=== PATIENT | male | born 1975 | race Caucasian/White ===

== ENCOUNTER 2021-03-27 11:12 | Inpatient (IN) | payer OTHER ==
[2021-03-27 11:39] VITALS: BMI 27.4
[2021-03-27] MEDS ORDERED: MENTHOL/PHENOL 1 EACH UD MM PRN (13:35)
[2021-03-27] MEDS ORDERED: diazePAM 5 MG TABLET PO PRN (13:35)
[2021-03-27] MEDS ORDERED: BISMUTH SUBSALICYLATE 524 MG/30 ML PO PRN (13:35)
[2021-03-27] MEDS ORDERED: MAGNESIUM HYDROX 2400MG/30ML ORAL SUSPENSION 30 ML CUP PO PRN (13:35)
[2021-03-27] MEDS ORDERED: NICOTINE 10 MG CARTRIDGE (INHALER) IH PRN (13:35)
[2021-03-27] MEDS ORDERED: METHOCARBAMOL 500 MG TABLET PO PRN (13:35)
[2021-03-27] MEDS ORDERED: MAG HYDROX/AL HYDROX/SIMETH 30 ML UNIT-DOSE CUP PO PRN (13:35)
[2021-03-27] MEDS ORDERED: MAGNESIUM CITRATE 300 ML BOTTLE PO PRN (13:35)
[2021-03-27] MEDS ORDERED: IBUPROFEN 400 MG TABLET (FP) PO PRN (13:35)
[2021-03-27] MEDS ORDERED: ACETAMINOPHEN 325 MG TABLET (FP) PO PRN ×2 (13:35)
[2021-03-27] MEDS ORDERED: ONDANSETRON *ODT* 4 MG TABLET SL PRN (13:35)
[2021-03-27] MEDS: hydrOXYzine PAMOATE 25 MG CAPSULE (FP) PO SCH ×3 (17:44→22:43)
[2021-03-27] MEDS: diazePAM 5 MG TABLET PO SCH ×2 (17:45→22:44)
[2021-03-27] MEDS: MELATONIN 5 MG TABLETS PO SCH (22:43)
[2021-03-27] MEDS: THIAMINE HCL 100 MG TABLET (FP) PO SCH (22:43)
[2021-03-28] MEDS: diazePAM 5 MG TABLET PO SCH ×4 (06:03→22:40)
[2021-03-28] MEDS: hydrOXYzine PAMOATE 25 MG CAPSULE (FP) PO SCH ×5 (06:03→22:39)
[2021-03-28 10:54] LABS: HEMATOCRIT 39.9 % (35.4-49); HEMOGLOBIN 13.7 GM/dL (11.7-16.9); MCH 30.7 pg (25.7-33.7); MCHC 34.4 g/dl (32.0-35.9); MEAN CELL VOLUME 89.3 fl (80-96); MEAN PLT VOLUME 8.7 fl (7.5-11.1); PLATELET COUNT 198 10^3/uL (134-434); RBC 4.47 M/mm3 (4.00-5.60); RDW 13.3 % (11.9-15.9); WHITE BLOOD COUNT 4.3 K/mm3 (4.0-10.0)
[2021-03-28] MEDS: PRENATAL VITAMINS W/ FOLIC ACID TABLET (FP) PO SCH (11:00)
[2021-03-28 11:03] LABS: ALBUMIN 3.3 g/dl (3.4-5.0); BLOOD UREA NITROGEN 18.8 mg/dL (7-18); CALCIUM 8.6 mg/dL (8.5-10.1)
[2021-03-28 11:06] LABS: CREATININE 0.9 mg/dL (0.55-1.3)
[2021-03-28 11:07] LABS: BILIRUBIN,TOTAL 0.5 mg/dL (0.2-1)
[2021-03-28 14:42] LABS: HIV INTERPRETATION NEGATIVE (NEGATIVE)
[2021-03-28] MEDS: MELATONIN 5 MG TABLETS PO SCH (22:39)
[2021-03-28] MEDS: THIAMINE HCL 100 MG TABLET (FP) PO SCH (22:39)
[2021-03-29] MEDS: diazePAM 5 MG TABLET PO SCH ×3 (06:31→22:56)
[2021-03-29] MEDS: hydrOXYzine PAMOATE 25 MG CAPSULE (FP) PO SCH ×5 (06:31→22:56)
[2021-03-29] MEDS: PRENATAL VITAMINS W/ FOLIC ACID TABLET (FP) PO SCH (10:25)
[2021-03-29] MEDS: MELATONIN 5 MG TABLETS PO SCH (22:55)
[2021-03-29] MEDS: THIAMINE HCL 100 MG TABLET (FP) PO SCH (22:56)
[2021-03-30] MEDS: diazePAM 5 MG TABLET PO SCH ×2 (07:03→18:55)
[2021-03-30] MEDS: hydrOXYzine PAMOATE 25 MG CAPSULE (FP) PO SCH ×5 (07:03→22:50)
[2021-03-30] MEDS: PRENATAL VITAMINS W/ FOLIC ACID TABLET (FP) PO SCH (10:24)
[2021-03-30] MEDS: THIAMINE HCL 100 MG TABLET (FP) PO SCH (22:50)
[2021-03-30] MEDS: MELATONIN 5 MG TABLETS PO SCH (22:50)
[2021-03-31] MEDS ORDERED: diazePAM 5 MG TABLET PO ONE (06:00)
[2021-03-31] MEDS: hydrOXYzine PAMOATE 25 MG CAPSULE (FP) PO SCH ×2 (06:36→10:32)
[2021-03-31 09:31] VITALS: BP 105/70; PULSE 69; TEMP 97.1
[2021-03-31] MEDS: PRENATAL VITAMINS W/ FOLIC ACID TABLET (FP) PO SCH (10:32)
== END 2021-03-31 11:05 | disposition other institution (70) | DRG 775 ==
LOC: YASAS 11:12 → Y3N 15:24
PROVIDERS: ADMIT Allergy & Immunology; ATTEND Allergy & Immunology
PROC: HZ2ZZZZ Detoxification Services for Substance Abuse Treatment (ICD-10-PCS; principal; 2021-03-27)
DX: F10.230 Alcohol dependence with withdrawal, uncomplicated (principal); F12.20 Cannabis dependence, uncomplicated; F17.210 Nicotine dependence, cigarettes, uncomplicated; Z56.0 Unemployment, unspecified; Z59.0 Homelessness
CPT/HCPCS: 36415; 80053; 85027; 86780; 87389; 93005; 93010; C9803; U0003; U0005

== ENCOUNTER 2021-03-31 11:29 | Inpatient (IN) | payer OTHER ==
[2021-03-31] MEDS ORDERED: MAGNESIUM HYDROX 2400MG/30ML ORAL SUSPENSION 30 ML CUP PO PRN (12:51)
[2021-03-31] MEDS ORDERED: LOPERAMIDE HCL 2 MG CAPSULE PO PRN (12:51)
[2021-03-31] MEDS ORDERED: IBUPROFEN 400 MG TABLET (FP) PO PRN (12:51)
[2021-03-31] MEDS ORDERED: guaiFENesin 200 MG/10 ML 10 ML UNIT-DOSE CUPS PO PRN (12:51)
[2021-03-31] MEDS ORDERED: hydrOXYzine PAMOATE 25 MG CAPSULE (FP) PO PRN (12:51)
[2021-03-31] MEDS ORDERED: ACETAMINOPHEN 325 MG TABLET (FP) PO PRN (12:51)
[2021-03-31] MEDS ORDERED: P-EPHED 60MG/TRIPROLIDI 2.5MG TABLET PO PRN (12:51)
[2021-03-31] MEDS ORDERED: NICOTINE 10 MG CARTRIDGE (INHALER) IH PRN (12:51)
[2021-03-31] MEDS ORDERED: MAG HYDROX/AL HYDROX/SIMETH 30 ML UNIT-DOSE CUP PO PRN (12:51)
[2021-03-31] MEDS ORDERED: MENTHOL/PHENOL 1 EACH UD MM PRN (12:51)
[2021-03-31] MEDS ORDERED: MAGNESIUM CITRATE 300 ML BOTTLE PO PRN (12:51)
[2021-03-31] MEDS: METHOCARBAMOL 500 MG TABLET PO SCH ×3 (13:49→22:23)
[2021-03-31] MEDS: MELATONIN 5 MG TABLETS PO SCH (22:23)
[2021-03-31] MEDS: THIAMINE HCL 100 MG TABLET (FP) PO SCH (22:24)
[2021-04-01] MEDS: NICOTINE 7 MG/24 HOURS TOPICAL PATCH TD SCH (10:05)
[2021-04-01] MEDS: PRENATAL VITAMINS W/ FOLIC ACID TABLET (FP) PO SCH (10:06)
[2021-04-01] MEDS: METHOCARBAMOL 500 MG TABLET PO SCH ×2 (10:06→13:25)
[2021-04-01] MEDS: MELATONIN 5 MG TABLETS PO SCH (21:12)
[2021-04-01] MEDS: THIAMINE HCL 100 MG TABLET (FP) PO SCH (21:12)
[2021-04-02] MEDS ORDERED: PT OWN MED DRAWER 7, Y5N ONE (08:08)
[2021-04-02] MEDS: NICOTINE 7 MG/24 HOURS TOPICAL PATCH TD SCH (09:23)
[2021-04-02] MEDS: PRENATAL VITAMINS W/ FOLIC ACID TABLET (FP) PO SCH (09:24)
[2021-04-02] MEDS: MELATONIN 5 MG TABLETS PO SCH (23:14)
[2021-04-02] MEDS: THIAMINE HCL 100 MG TABLET (FP) PO SCH (23:14)
[2021-04-03 07:06] VITALS: TEMP 97.1
[2021-04-03] MEDS: PRENATAL VITAMINS W/ FOLIC ACID TABLET (FP) PO SCH (09:15)
[2021-04-03] MEDS: NICOTINE 7 MG/24 HOURS TOPICAL PATCH TD SCH (09:15)
[2021-04-03] MEDS: THIAMINE HCL 100 MG TABLET (FP) PO SCH (23:39)
[2021-04-03] MEDS: MELATONIN 5 MG TABLETS PO SCH (23:39)
[2021-04-04 07:10] VITALS: PULSE 62
[2021-04-04] MEDS: PRENATAL VITAMINS W/ FOLIC ACID TABLET (FP) PO SCH (10:22)
[2021-04-04] MEDS: NICOTINE 7 MG/24 HOURS TOPICAL PATCH TD SCH (10:22)
[2021-04-04] MEDS: THIAMINE HCL 100 MG TABLET (FP) PO SCH (21:58)
[2021-04-04] MEDS: MELATONIN 5 MG TABLETS PO SCH (21:58)
[2021-04-05 06:28] VITALS: BP 125/72
[2021-04-05] MEDS: PRENATAL VITAMINS W/ FOLIC ACID TABLET (FP) PO SCH (09:05)
[2021-04-05] MEDS: NICOTINE 7 MG/24 HOURS TOPICAL PATCH TD SCH (09:05)
== END 2021-04-05 12:04 | disposition home or self-care (01) | DRG 772 ==
LOC: YASAS 11:29 → Y3E 11:30
PROVIDERS: ADMIT Allergy & Immunology; ATTEND Allergy & Immunology
PROC: HZ42ZZZ Group Counseling for Substance Abuse Treatment, Cognitive-Behavioral (ICD-10-PCS; principal; 2021-03-31)
DX: F10.20 Alcohol dependence, uncomplicated (principal); F12.20 Cannabis dependence, uncomplicated; F17.210 Nicotine dependence, cigarettes, uncomplicated

== ENCOUNTER 2022-09-18 16:18 | Inpatient (IN) | payer OTHER ==
[2022-09-18 17:06] VITALS: BMI 25.0
[2022-09-18] MEDS ORDERED: IBUPROFEN 400 MG TABLET (FP) PO PRN (19:54)
[2022-09-18] MEDS ORDERED: MAGNESIUM HYDROX 2400MG/30ML ORAL SUSPENSION 30 ML CUP PO PRN (19:54)
[2022-09-18] MEDS ORDERED: DICYCLOMINE HCL 10 MG CAPSULE PO PRN (19:54)
[2022-09-18] MEDS ORDERED: BISMUTH SUBSALICYLATE 524 MG/30 ML PO PRN (19:54)
[2022-09-18] MEDS ORDERED: hydrOXYzine PAMOATE 25 MG CAPSULE (FP) PO PRN (19:54)
[2022-09-18] MEDS ORDERED: BENZONATATE 200 MG CAPSULE PO PRN (19:54)
[2022-09-18] MEDS ORDERED: P-EPHED 60MG/TRIPROLIDI 2.5MG TABLET PO PRN (19:54)
[2022-09-18] MEDS ORDERED: guaiFENesin 600 MG TABLET.ER (FP) PO PRN (19:54)
[2022-09-18] MEDS ORDERED: LOPERAMIDE HCL 2 MG CAPSULE PO PRN (19:54)
[2022-09-18] MEDS ORDERED: POLYETHYLENE GLYCOL (HEALTHYLAX) 3350 17 GM PACKET PO PRN (19:54)
[2022-09-18] MEDS ORDERED: BENZOCAINE/MENTHOL (CHLORASEPTIC ) LOZENGE MM PRN (19:54)
[2022-09-18] MEDS ORDERED: ONDANSETRON *ODT* 4 MG TABLET SL PRN (19:54)
[2022-09-18] MEDS ORDERED: ACETAMINOPHEN 325 MG TABLET (FP) PO PRN (19:54)
[2022-09-18] MEDS: THIAMINE HCL 100 MG TABLET (FP) PO SCH (21:36)
[2022-09-19] MEDS: PRENATAL VITAMINS W/ FOLIC ACID TABLET (FP) PO SCH (10:12)
[2022-09-19] MEDS: chlordiazePOXIDE HCL 25 MG CAPSULE PO SCH ×3 (10:13→22:29)
[2022-09-19 12:32] LABS: HEMATOCRIT 40.5 % (35.4-49); MCH 30.9 pg (25.7-33.7); MCHC 34.6 g/dl (32.0-35.9); MEAN CELL VOLUME 89.3 fl (80-96); MEAN PLT VOLUME 8.8 fl (7.5-11.1); PLATELET COUNT 190 10^3/uL (134-434); RBC 4.54 M/mm3 (4.00-5.60); RDW 12.8 % (11.9-15.9); WHITE BLOOD COUNT 4.9 K/mm3 (4.0-10.0)
[2022-09-19 12:38] LABS: ALBUMIN 3.4 g/dl (3.4-5.0); CALCIUM 8.7 mg/dL (8.5-10.1)
[2022-09-19 12:39] LABS: BLOOD UREA NITROGEN 20.7 mg/dL (7-18)
[2022-09-19 12:41] LABS: CREATININE 0.9 mg/dL (0.55-1.3)
[2022-09-19 12:43] LABS: BILIRUBIN,TOTAL 0.2 mg/dL (0.2-1)
[2022-09-19] MEDS: chlordiazePOXIDE HCL 25 MG CAPSULE PO PRN (14:42)
[2022-09-19] MEDS: THIAMINE HCL 100 MG TABLET (FP) PO SCH (22:29)
[2022-09-19] MEDS: MELATONIN 5 MG TABLETS PO PRN (22:29)
[2022-09-20] MEDS: chlordiazePOXIDE HCL 25 MG CAPSULE PO SCH ×5 (05:50→22:50)
[2022-09-20] MEDS: PRENATAL VITAMINS W/ FOLIC ACID TABLET (FP) PO SCH (10:15)
[2022-09-20] MEDS: chlordiazePOXIDE HCL 25 MG CAPSULE PO PRN ×2 (12:52→20:01)
[2022-09-20] MEDS: MELATONIN 5 MG TABLETS PO PRN (22:48)
[2022-09-20] MEDS: THIAMINE HCL 100 MG TABLET (FP) PO SCH (22:49)
[2022-09-21] MEDS: MAG HYDROX/AL HYDROX/SIMETH 30 ML UNIT-DOSE CUP PO PRN (02:54)
[2022-09-21] MEDS: chlordiazePOXIDE HCL 25 MG CAPSULE PO SCH ×4 (05:54→22:58)
[2022-09-21] MEDS: PRENATAL VITAMINS W/ FOLIC ACID TABLET (FP) PO SCH (10:07)
[2022-09-21] MEDS: THIAMINE HCL 100 MG TABLET (FP) PO SCH (22:58)
[2022-09-22] MEDS ORDERED: chlordiazePOXIDE HCL 10 MG CAPSULE PO PRN
[2022-09-22] MEDS: chlordiazePOXIDE HCL 10 MG CAPSULE PO SCH ×5 (06:15→22:20)
[2022-09-22] MEDS: PRENATAL VITAMINS W/ FOLIC ACID TABLET (FP) PO SCH (10:10)
[2022-09-22] MEDS: MAG HYDROX/AL HYDROX/SIMETH 30 ML UNIT-DOSE CUP PO PRN (17:49)
[2022-09-22] MEDS: THIAMINE HCL 100 MG TABLET (FP) PO SCH (21:30)
[2022-09-22] MEDS: MELATONIN 5 MG TABLETS PO PRN (21:30)
[2022-09-23] MEDS: chlordiazePOXIDE HCL 10 MG CAPSULE PO SCH ×2 (05:52→17:54)
[2022-09-23] MEDS: PRENATAL VITAMINS W/ FOLIC ACID TABLET (FP) PO SCH (10:30)
[2022-09-23] MEDS: IBUPROFEN 600 MG TABLET (FP) PO PRN ×2 (12:33→20:56)
[2022-09-23] MEDS: MELATONIN 5 MG TABLETS PO PRN (21:51)
[2022-09-23] MEDS: THIAMINE HCL 100 MG TABLET (FP) PO SCH (21:51)
[2022-09-24] MEDS ORDERED: chlordiazePOXIDE HCL 10 MG CAPSULE PO ONE (05:00)
[2022-09-24] MEDS: IBUPROFEN 600 MG TABLET (FP) PO PRN (05:54)
[2022-09-24 09:32] VITALS: BP 122/72; PULSE 89; RESP 17; TEMP 97.1
[2022-09-24] MEDS: PRENATAL VITAMINS W/ FOLIC ACID TABLET (FP) PO SCH (10:20)
== END 2022-09-24 11:45 | disposition home or self-care (01) | DRG 775 ==
LOC: YASAS 16:18 → Y3N 21:04
PROVIDERS: ADMIT Allergy & Immunology; ATTEND Surgery
PROC: HZ2ZZZZ Detoxification Services for Substance Abuse Treatment (ICD-10-PCS; principal; 2022-09-18)
DX: F10.230 Alcohol dependence with withdrawal, uncomplicated (principal); F17.210 Nicotine dependence, cigarettes, uncomplicated; R79.89 Other specified abnormal findings of blood chemistry
CPT/HCPCS: 36415; 80053; 85027; 86780; C9803-CS; U0003; U0005

== ENCOUNTER 2023-04-24 13:12 | Inpatient (IN) | payer OTHER ==
[2023-04-24 14:33] VITALS: BMI 28.3
[2023-04-24] MEDS ORDERED: BENZOCAINE/MENTHOL (CHLORASEPTIC ) LOZENGE MM PRN (15:00)
[2023-04-24] MEDS ORDERED: BENZONATATE 200 MG CAPSULE PO PRN (15:00)
[2023-04-24] MEDS ORDERED: MAG HYDROX/AL HYDROX/SIMETH 30 ML UNIT-DOSE CUP PO PRN (15:00)
[2023-04-24] MEDS ORDERED: NICOTINE POLACRILEX 2 MG GUM BUC PRN (15:00)
[2023-04-24] MEDS ORDERED: IBUPROFEN 400 MG TABLET (FP) PO PRN (15:00)
[2023-04-24] MEDS ORDERED: ONDANSETRON *ODT* 4 MG TABLET SL PRN (15:00)
[2023-04-24] MEDS ORDERED: BISMUTH SUBSALICYLATE 262 MG/15 ML BTL PO PRN (15:00)
[2023-04-24] MEDS ORDERED: ACETAMINOPHEN 325 MG TABLET (FP) PO PRN (15:00)
[2023-04-24] MEDS ORDERED: MAGNESIUM HYDROX 2400MG/30ML ORAL SUSPENSION 30 ML CUP PO PRN (15:00)
[2023-04-24] MEDS ORDERED: guaiFENesin 600 MG TABLET.ER (FP) PO PRN (15:00)
[2023-04-24] MEDS ORDERED: POLYETHYLENE GLYCOL (HEALTHYLAX) 3350 17 GM PACKET PO PRN (15:00)
[2023-04-24] MEDS ORDERED: NALOXONE HCL 0.4 MG/ML VIAL IM PRN (15:00)
[2023-04-24] MEDS ORDERED: DICYCLOMINE HCL 10 MG CAPSULE PO PRN (15:00)
[2023-04-24] MEDS ORDERED: NALOXONE HCL (KLOXXADO) 8 MG SPRAY NS PRN (15:00)
[2023-04-24] MEDS ORDERED: LOPERAMIDE HCL 2 MG CAPSULE PO PRN (15:00)
[2023-04-24] MEDS: THIAMINE HCL 100 MG TABLET (FP) PO SCH (23:16)
[2023-04-24] MEDS: MELATONIN 5 MG TABLETS PO SCH (23:16)
[2023-04-25] MEDS: IBUPROFEN 600 MG TABLET (FP) PO PRN (07:18)
[2023-04-25] MEDS: hydrOXYzine PAMOATE 25 MG CAPSULE (FP) PO PRN (07:19)
[2023-04-25] MEDS: METHOCARBAMOL 500 MG TABLET PO PRN ×2 (07:19→22:30)
[2023-04-25] MEDS ORDERED: diazePAM 5 MG TABLET PO PRN (09:44)
[2023-04-25] MEDS ORDERED: diazePAM 5 MG TABLET PO ONE (10:00)
[2023-04-25] MEDS: NICOTINE 21 MG/24 HOURS TOPICAL PATCH TD SCH ×2 (10:52)
[2023-04-25] MEDS: PRENATAL VITAMINS W/ FOLIC ACID TABLET (FP) PO SCH (10:52)
[2023-04-25 12:22] LABS: CHLORIDE 105 mmol/L (98-107); POTASSIUM 4.1 mmol/L (3.5-5.1); SODIUM 139 mmol/L (136-145)
[2023-04-25 12:26] LABS: HEMATOCRIT 42.9 % (35.4-49); HEMOGLOBIN 14.1 GM/dL (11.7-16.9); MCH 29.3 pg (25.7-33.7); MCHC 32.8 g/dl (32.0-35.9); MEAN CELL VOLUME 89.2 fl (80-96); MEAN PLT VOLUME 8.6 fl (7.5-11.1); PLATELET COUNT 207 10^3/uL (134-434); RBC 4.81 M/mm3 (4.00-5.60); WHITE BLOOD COUNT 3.6 K/mm3 (4.0-10.0)
[2023-04-25 12:28] LABS: ALBUMIN 3.6 g/dl (3.4-5.0); GLUCOSE,RANDOM 92 mg/dL (74-106)
[2023-04-25 12:31] LABS: ANION GAP 5 mmol/L (4-13); CALCIUM 8.6 mg/dL (8.5-10.1); CO2 28 mmol/L (21-32); CREATININE 0.8 mg/dL (0.55-1.3); SGPT/ALT 27 U/L (13-61)
[2023-04-25 12:32] LABS: SGOT/AST 26 U/L (15-37)
[2023-04-25 12:35] LABS: BILIRUBIN,TOTAL 1.4 mg/dL (0.2-1)
[2023-04-25 12:36] LABS: TOT PROT 6.3 g/dl (6.4-8.2)
[2023-04-25 12:37] LABS: ALK PHOS 91 U/L (45-117)
[2023-04-25] MEDS: diazePAM 5 MG TABLET PO SCH ×2 (17:40→22:30)
[2023-04-25] MEDS: THIAMINE HCL 100 MG TABLET (FP) PO SCH (22:30)
[2023-04-25] MEDS: MELATONIN 5 MG TABLETS PO SCH (22:30)
[2023-04-26] MEDS: diazePAM 5 MG TABLET PO SCH ×4 (05:45→22:15)
[2023-04-26] MEDS: NICOTINE 21 MG/24 HOURS TOPICAL PATCH TD SCH (10:23)
[2023-04-26] MEDS: PRENATAL VITAMINS W/ FOLIC ACID TABLET (FP) PO SCH (10:23)
[2023-04-26] MEDS: hydrOXYzine PAMOATE 25 MG CAPSULE (FP) PO PRN (22:15)
[2023-04-26] MEDS: THIAMINE HCL 100 MG TABLET (FP) PO SCH (22:15)
[2023-04-26] MEDS: MELATONIN 5 MG TABLETS PO SCH (22:15)
[2023-04-26] MEDS: METHOCARBAMOL 500 MG TABLET PO PRN (22:15)
[2023-04-27] MEDS: diazePAM 5 MG TABLET PO SCH ×3 (05:14→22:34)
[2023-04-27] MEDS: METHOCARBAMOL 500 MG TABLET PO PRN ×2 (05:15→22:35)
[2023-04-27] MEDS: NICOTINE 21 MG/24 HOURS TOPICAL PATCH TD SCH (10:12)
[2023-04-27] MEDS: PRENATAL VITAMINS W/ FOLIC ACID TABLET (FP) PO SCH (10:12)
[2023-04-27] MEDS: hydrOXYzine PAMOATE 25 MG CAPSULE (FP) PO PRN ×2 (10:13→22:34)
[2023-04-27] MEDS: MELATONIN 5 MG TABLETS PO SCH (22:34)
[2023-04-27] MEDS: THIAMINE HCL 100 MG TABLET (FP) PO SCH (22:34)
[2023-04-28] MEDS: diazePAM 5 MG TABLET PO SCH ×3 (05:57→17:39)
[2023-04-28] MEDS: NICOTINE 21 MG/24 HOURS TOPICAL PATCH TD SCH (10:15)
[2023-04-28] MEDS: PRENATAL VITAMINS W/ FOLIC ACID TABLET (FP) PO SCH (10:15)
[2023-04-28] MEDS: METHOCARBAMOL 500 MG TABLET PO PRN (12:58)
[2023-04-28] MEDS: IBUPROFEN 600 MG TABLET (FP) PO PRN (12:58)
[2023-04-28] MEDS: hydrOXYzine PAMOATE 25 MG CAPSULE (FP) PO PRN (17:39)
[2023-04-28] MEDS: MELATONIN 5 MG TABLETS PO SCH (22:49)
[2023-04-28] MEDS: THIAMINE HCL 100 MG TABLET (FP) PO SCH (22:49)
[2023-04-29 06:00] VITALS: RESP 18
[2023-04-29] MEDS ORDERED: diazePAM 5 MG TABLET PO ONE (06:00)
[2023-04-29] MEDS: NICOTINE 21 MG/24 HOURS TOPICAL PATCH TD SCH (09:09)
[2023-04-29] MEDS: PRENATAL VITAMINS W/ FOLIC ACID TABLET (FP) PO SCH (09:09)
[2023-04-29 09:24] VITALS: BP 133/70; PULSE 90; TEMP 98
== END 2023-04-29 11:40 | disposition home or self-care (01) | DRG 775 ==
LOC: YASAS 13:12 → Y6N 16:45
PROVIDERS: ADMIT Allergy & Immunology; ATTEND Surgery
PROC: HZ2ZZZZ Detoxification Services for Substance Abuse Treatment (ICD-10-PCS; principal; 2023-04-24)
DX: F10.230 Alcohol dependence with withdrawal, uncomplicated (principal); F15.20 Other stimulant dependence, uncomplicated; F12.20 Cannabis dependence, uncomplicated; F17.210 Nicotine dependence, cigarettes, uncomplicated; K62.5 Hemorrhage of anus and rectum
CPT/HCPCS: 36415; 80053; 80307; 85027; 86780; 87635; 93005; 93010